=== PATIENT | female | born 1995 | race Caucasian/White ===

== ENCOUNTER 2019-07-16 16:01 | Emergency (ER) | payer SELFPAY ==
[~2019-07-16] VITALS: Ht 157.5 cm; Wt 56.2 kg
[2019-07-16 16:12] VITALS: BP 114/63
--- NOTE | 2019-07-16 16:18 | NUR ---
24 y/o f presents to ER c/o Dry Cough and runny nose since yesterday. Pt sent home from work, will not be able to return unless pt gets a doctors note. Pt denies any pain. Pain level 0/10. Allergies: NKA Med hx: none
[2019-07-16 16:24] VITALS: BP 114/63
--- NOTE | 2019-07-16 16:24 | NUR ---
Patient discharged with v/s stable. Written and verbal after care instructions given and explained. Patient verbalized understanding. Ambulatory with steady gait. All questions addressed prior to discharge. Advised to follow up with PMD.
== END 2019-07-16 16:24 | disposition home or self-care (01) ==
LOC: MED 16:01
DX: J06.9 Acute upper respiratory infection, unspecified (principal)
CPT/HCPCS: 99281; 99282